=== PATIENT | male | born 1940 | race Caucasian/White ===

== ENCOUNTER 2017-07-15 20:49 | Inpatient (IN) | payer OTHER ==
--- NOTE | 2017-07-15 21:24 | EDPHY ---
H & P Smoking Status: Never smoked Time Seen by Provider: 07/15/17 21:10 HPI/ROS: CHIEF COMPLAINT: Aphasia HISTORY OF PRESENT ILLNESS: The patient is a 77-year-old male who presents emergency department with difficulty with word finding. Patient's family is present. They state he seems more confused. His symptoms arteries on Saturday, the 12 of July. They seem to be gradually worsening. The patient states he feels as though he knows what he wants disabled cannot find the words. He uses inappropriate words. He denies any focal weakness or numbness. No visual change. No headache or neck pain. No recent trauma or fall. Patient's states this seemed to be more off balance a week ago Saturday when they were at yoga. REVIEW OF SYSTEMS: My complete review of systems is negative except as mentioned in the HPI. ( Henny Shaffer) Past Medical/Surgical History: The triage note states the patient has a history of hypertension. However, the family denies any history of hypertension. PSH: vasectomy Social: Pt denies smoking, drugs and alcohol. (Henny Shaffer) Physical Exam: GENERAL: Well-appearing, in no acute distress, alert. HEENT: Eyes normal to inspection, normal pharynx, no signs of dehydration. NECK: No thyromegaly, no lymphadenopathy, supple. RESPIRATORY: Clear to auscultation bilaterally, no rales, rhonchi or wheezing. CVS: Regular rate and rhythm, no rubs, murmurs, or gallops. ABDOMEN: Soft, nontender, nondistended, no organomegaly. BACK: Normal to inspection, no CVA tenderness. SKIN: Normal color, no rash, warm, dry. No pallor. EXTREMITIES: No pedal edema, no calf tenderness, no Homans sign or cords, no joint swelling. NEURO/PSYCH: Higher functions: Alert and Oriented x3. Normal cognition. The word-finding difficulty. No slurred speech. Normal mood and affect. Cranial nerves: Normal as tested. Cerebellar: The patient has a slight tremor with pointing. Good finger to nose , good horv-[id number], normal gait. Peripheral exam: Normal motor exam. Normal sensation. Normal reflexes. ( Henny Shaffer) Constitutional: Initial Vital Signs Temperature (C) 36.9 C 07/15/17 20:52 Heart Rate 58 L 07/15/17 20:52 Respiratory Rate 18 07/15/17 20:52 Blood Pressure 116/71 07/15/17 20:52 O2 Sat (%) 96 07/15/17 20:52 O2 Delivery Mode Room Air Allergies/Adverse Reactions: No Known Allergies Allergy (Unverified 07/15/17 20:55) Home Medications: Medication Instructions Recorded Tamsulosin HCl [Flomax 0.4 MG (*)] 0.4 mg PO DAILY18 07/15/17 Atorvastatin Calcium [Lipitor 40 40 mg PO DAILY18 07/16/17 mg (*)] Glucosamine/Chondroitin 1 each PO DAILY 07/16/17 [Glucosamine/Chondroitin (*)] Ibuprofen [Motrin (*)] 200 mg PO DAILY 07/16/17 Multivitamins [Multivitamin (*)] 1 each PO DAILY 07/16/17 Naproxen Sodium [Aleve 220 MG (*)] 220 mg PO BID PRN 07/16/17 Medical Decision Making ED Course/Re-evaluation: In the emergency department I discussed possible etiologies with the patient's family. I answered all her questions. IV was placed. Laboratory studies, EKG and MRI brain were ordered. I do not feel the patient needs CT imaging at this time based on his presentation. I discussed this with the radiologist. The patient's symptoms started on 07/12/2017. He is out of the window for tPA. He was not made a stroke activation. Sinus rhythm at 55. Normal axis. First-degree AV block. CBC is unremarkable. Chemistry panel normal. Patient's alcohol is negative. Coags normal. I rechecked the patient while here. He was stable with no new complaints. He did not developed new focal neurologic deficits. 0: The signed out to Dr. Roberts at change of shift. The patient is awaiting MRI imaging. My plan, as discussed with Dr. Roberts, is to obtain the MRI results. For positive finding he will address the results. If the MRI is negative I feel the patient needs admission for further workup for his aphasia. (Henny Shaffer) 2350: Spoke with the hospitalist service Dr. Jacobsen. Agrees to admit this patient. Reason for admission brain tumor. Confusion. Additionally I will touch base with Neurosurgery. 2352: Spoke with Dr. Rajpal, with Neurosurgery. They will plan on consulting the patient. Recommend IV Decadron 10 mg. No further rect at this time. Will see and evaluate the patient. (Ta Roberts) Differential Diagnosis: My differential includes but is not limited to ischemic CVA, hemorrhagic CVA, dissection, aneurysm, electrolyte abnormality, sugar abnormality, mass, malignancy, subarachnoid hemorrhage, subdural hematoma, epidural hematoma ( Henny Shaffer) - Data Points Laboratory Results: Laboratory Results 07/15/17 21:30 07/15/17 21:30 Medications Given: Dexamethasone (Decadron) 4 mg PO Q6HRS AIDA Stop: 01/12/18 05:59 Last Admin: 07/16/17 18:00 Dose: 4 mg Tamsulosin HCl (Flomax) 0.4 mg PO DAILY18 AIDA Stop: 01/12/18 17:59 Last Admin: 07/16/17 18:00 Dose: 0.4 mg Discontinued Medications Dexamethasone (Decadron Injection) 10 mg IVP EDNOW ONE Stop: 07/15/17 23:53 Last Admin: 07/16/17 00:30 Dose: 10 mg Departure - Departure Disposition: [facility] Inpatient Acute Clinical Impression: Aphasia, Brain tumor Condition: Good
--- NOTE | 2017-07-15 21:30 | CPEKG ---
Heart Rate: 55 RR Interval: 1091 P-R Interval: 228 QRSD Interval: 100 QT Interval: 408 QTC Interval: 391 P Ross: 49 QRS Ross: 23 T Wave Ross: 37 EKG Severity - ABNORMAL ECG - EKG Impression: SINUS RHYTHM EKG Impression: FIRST DEGREE AV BLOCK EKG Impression: LOW VOLTAGE IN FRONTAL LEADS Electronically Signed By: Henny Shaffer 15-Jul-2017 22:50:05
[2017-07-15 21:38] LABS: PLATELET COUNT 241 10^3/uL (150-400)
[2017-07-15 21:53] LABS: INR 0.95 (0.83-1.16); PROTIME(PATIENT) 12.9 SEC (12.0-15.0)
[2017-07-15] MEDS ORDERED: GADOBUTROL 10 ML VIAL IVP ONE (23:06)
[2017-07-15] MEDS ORDERED: ACETAMINOPHEN 325 MG TAB PO PRN (23:50)
[2017-07-15] MEDS ORDERED: ONDANSETRON 4 MG/2 ML VIAL IVP PRN (23:50)
[2017-07-15] MEDS ORDERED: ONDANSETRON DISINTEGRATING 4 MG TAB PO PRN (23:50)
[2017-07-15] MEDS ORDERED: DEXAMETHASONE 10 MG/ML VIAL IVP ONE (23:52)
--- NOTE | 2017-07-16 00:47 | PDGENHP ---
History and Physical - Chief Complaint Word finding difficulty - History of Present Illness 77 yo M w/o significant PMHx presents with word finding difficulty. Patient is quite healthy for his age. Family reports they have noted some odd behavior over the last few weeks. By that they mean word finding difficulty and less mental acuity than usual. Patient himself denies any organic symptoms. Specifically, he denies headache, visual disturbance, as well as numbness and weakness of any kind. MRI in the ED shows large L basal ganglia lesions of unclear etiology, likely tumor. Patient is being admitted for further work-up and treatment planning. History Information - Allergies/Home Medication List Allergies/Adverse Reactions: No Known Allergies Allergy (Unverified 07/15/17 20:55) Home Medications: Flomax 07/15/17 [Last Taken Unknown] I have personally reviewed and updated: family history, medical history - Past Medical History Additional medical history: BPH - Family History Additional family history: Denies family hx of brain cancer - Social History Smoking Status: Never smoked Review of Systems Review of Systems: ROS: 10pt was reviewed & negative except for what was stated in HPI & below Physical Exam Physical Exam: Temp Pulse Resp BP Pulse Ox 36.9 C 59 L 16 127/81 H 95 07/15/17 20:52 07/16/17 00:30 07/16/17 00:30 07/16/17 00:30 07/16/17 00:30 Constitutional: no apparent distress, not in pain Eyes: PERRL, EOMI Ears, Nose, Mouth, Throat: moist mucous membranes, no oral mucosal ulcers Cardiovascular: regular rate and rhythym, no murmur, rub, or gallop Respiratory: no respiratory distress, clear to auscultation Gastrointestinal: normoactive bowel sounds, soft, non-tender abdomen Skin: warm, normal color Musculoskeletal: full muscle strength, no muscle tenderness Neurologic: AAOx3, sensation intact bilaterally, CN II-XII Intact, No weakness, No numbness, No facial droop Psychiatric: interacting appropriately, not anxious Lab Data & Imaging Review 07/15/17 21:30 07/15/17 21:30 WBC 5.60 10^3/uL (3.80-9.50) 07/15/17 21:30 RBC 4.08 10^6/uL (4.40-6.38) L 07/15/17 21:30 Hgb 13.1 g/dL (13.7-17.5) L 07/15/17 21: Hct 38.2 % (40.0-51.0) L 07/15/17 21: MCV 93.6 fL (81.5-99.8) 07/15/17 21:30 MCH 32.1 pg (27.9-34.1) 07/15/17 21: MCHC 34.3 g/dL (32.4-36.7) 07/15/17 21: RDW 13.6 % (11.5-15.2) 07/15/17: Plt Count 241 10^3/uL (150-400) 07/15/17: MPV 9.4 fL (8.7-11.7) 07/15/17 21: Neut % (Auto) 56.4 % (39.3-74.2) 07/15/17: Lymph % (Auto) 26.4 % (15.0-45.0) 07/15/17: Letcher % (Auto) 11.3 % (4.5-13.0) 07/15/17 21: Eos % (Auto) 3.9 % (0.6-7.6) 07/15/17: Baso % (Auto) 1.8 % (0.3-1.7) H 07/15/17: Nucleat RBC Rel Count 0.0 % (0.0-0.2) 07/15/17: Absolute Neuts (auto) 3.16 10^3/uL (1.70-6.50) 07/15/17 21: Absolute Lymphs (auto) 1.48 10^3/uL (1.00-3.00) 07/15/17: Absolute Monos (auto) 0.63 10^3/uL (0.30-0.80) 07/15/17 21: Absolute Eos (auto) 0.22 10^3/uL (0.03-0.40) 07/15/17 21: Absolute Basos (auto) 0.10 10^3/uL (0.02-0.10) 12/25/17 21:30 Absolute Nucleated RBC 0.00 10^3/uL (0-0.01) 07/15/17 21:30 Immature Gran % 0.2 % (0.0-1.1) 07/15/17 21:30 Immature Gran # 0.01 10^3/uL (0.00-0.10) 07/15/17 21:30 PT 12.9 SEC (12.0-15.0) 07/15/17 21:30 INR 0.95 (0.83-1.16) 07/15/17 21:30 APTT 24.6 SEC (23.0-38.0) 07/15/17 21:30 Sodium 141 mEq/L (134-144) 07/15/17 21:30 Potassium 4.2 mEq/L (3.5-5.2) 07/15/17 21:30 Chloride 104 mEq/L (97-110) 07/15/17 21:30 Carbon Dioxide 27 mEq/l (22-31) 07/15/17 21:30 Anion Gap 10 mEq/L (8-16) 07/15/17 21:30 BUN 26 mg/dL (7-23) H 07/15/17 21:30 Creatinine 1.1 mg/dL (0.7-1.3) 07/15/17 21:30 Estimated GFR > 60 07/15/17 21:30 Glucose 91 mg/dL (70-100) 07/15/17 21:30 Calcium 9.6 mg/dL (8.5-10.4) 07/15/17 21:30 Troponin I < 0.012 ng/mL (0.000-0.034) 07/15/17 21:30 Ethyl Alcohol < 10 mg/dL (0-10) 07/15/17 21:30 Imaging Review: Imaging Impressions Brain MRI 07/15/17 21:20 Impression: 1. Large lesion left basal ganglia with heterogeneous hemorrhagic central components and peripheral heterogeneous enhancement as well as a small amount of surrounding edema. The etiology is indeterminate. This could represent hemorrhagic tumor such as GBM or hemorrhagic metastatic lesion versus possibility of spontaneous intraparenchymal hemorrhage possibly from hypertension, amyloid angiopathy or vascular malformation that can sometimes also demonstrate peripheral marginal enhancement. Consider neurosurgical consultation for possible sampling and decompression since the patient is apparently symptomatic versus follow-up evaluation in about one month. If symptoms worsen, additional imaging may be necessary. These findings were discussed by telephone with Dr. Ta Roberts at 2355 hrs. Visualized and Interpreted EKG results: Yes EKG Interpretation: Positive for: normal sinsus rhythm, other (1st degree AV block) Assessment & Plan Assessment: 77 yo M presenting w/ word finding difficulty found to have brain mass. Plan: 1. Intracranial lesion - Describes as having heterogeneous hemorrhagic central components and peripheral heterogeneous enhancement as well as a small amount of surrounding edema. Per radiology this could represent hemorrhagic tumor such as GBM or hemorrhagic metastatic lesion versus possibility of spontaneous intraparenchymal hemorrhage possibly from hypertension, amyloid angiopathy or vascular malformation that can sometimes also demonstrate peripheral marginal enhancement. Patient has noted work finding difficulties but has no clear neurologic deficits on my exam. - Neurosurgery consulted, appreciate assistance - S/p dexamethasone 10 mg IV x1 in the ED, will continue 4 mg PO q6h - Will maintain NPO pending neurosurgery evaluation - Oncology consultation once tissue is obtained Diet - NPO Code - Full Ppx - SCDs Dispo - Admit to observation status
[2017-07-16 04:46] LABS: PLATELET COUNT 286 10^3/uL (150-400)
[2017-07-16] MEDS: DEXAMETHASONE 4 MG TAB PO SCH ×3 (06:25→18:00)
--- NOTE | 2017-07-16 08:31 | NEUSURGPN ---
Assessment/Plan: Please see full dictated consult for details 77 yr old with confusion, 4cm left basal ganglia brain tumor Plan: -Patient may have diet today -Plan for brain biopsy tomorrow with Dr Mabry -[facility] MRI ordered for surgical planning -Continue Decadron -PT/OT/ST to eval and treat -Patient seen by myself and Dr Coreas today at 0700 -Please call neurosurgery with any questions/concerns Subjective: patient denies headache Objective: AxO x3 PERRLA EOMI 5/5 BUE, BLE Neuro Check Frequency: per routine Urinary Catheter in Place: No - Physician Discussed Patient with Dr.: Mabry Patient Seen by : [facility] Neurosurgery Physical Exam - Vitals, I&O, Labs I and O 07/15/17 07/16/17 07/17/17 05:59 05:59 05:59 Weight 70.307 kg Other: Intake Quantity Yes Sufficient Vital Signs Temp Pulse Resp BP Pulse Ox 36.4 C 73 12 113/72 93 07/16/17 08:14 07/16/17 08:14 07/16/17 08:14 07/16/17 08:14 07/16/17 08:14 Laboratory Results 07/16/17 04:20 07/16/17 04:20 ICD10 Worksheet Patient Problems: Problems Problem Status Onset Aphasia Acute Brain tumor Acute
--- NOTE | 2017-07-16 09:28 | GCON ---
[f rep st] CONSULTATION CHIEF COMPLAINT: Confusion, brain tumor HISTORY OF PRESENT ILLNESS: The patient is a 77-year-old gentleman with no significant past medical history. Over the last 3 weeks, he and his have noticed some difficulty with words as well as some confusion at times. The patient's feels that he has had some mild balance issues as well. The patient and his were out of state for the holidays and flew home yesterday and came to the emergency room at [facility] for evaluation on their way home from the airport. REVIEW OF SYSTEMS: A 10-point review of systems was performed and negative aside from what was mentioned in the HPI. PAST MEDICAL HISTORY: 1. Benign prostatic hypertrophy. 2. Hepatitis A from the 1970s. PAST SURGICAL HISTORY: Vasectomy with infection complications. CURRENT MEDICATIONS: Flomax and a statin. FAMILY HISTORY: Patient denies any cancers in his mom or dad. Patient's father had atrial fibrillation and mother had a form of dementia. SOCIAL HISTORY: The patient is . He drinks alcohol on a very rare occasion, approximately once per month. He does not use any nicotine products and does not use any drugs. ALLERGIES: Patient has no known drug allergies. DIAGNOSTICS: MRI of the brain performed with and without contrast on 07/15/2017 , demonstrated a large lesion in the left basal ganglia with hemorrhagic components and a small amount of surrounding edema. This could represent a hemorrhagic tumor such as a glioblastoma or hemorrhagic metastatic lesion versus the possibility of a spontaneous intraparenchymal hemorrhage from hypertension or a vascular malformation. LABORATORY STUDIES: White blood cell count 7.06, hemoglobin 14.6, hematocrit 41.6, platelets are 286. PT 12.9, INR 0.95, PTT is 24.6, sodium is 141, potassium 4.2, BUN 20, creatinine 0.9. PHYSICAL EXAMINATION: VITAL SIGNS: Blood pressure is 113/72, heart rate is 73 , respiratory rate is 12, oxygen saturations 93% on room air, temperature is 36.4 degrees Celsius. HEENT: Head is normocephalic and atraumatic. Pupils are equal, round, and reactive to light. EOMI is intact. Full visual mathur by confrontation. RESPIRATORY: Deferred. CARDIAC: Deferred. ABDOMEN: Soft, nontender. GENITOURINARY: Deferred. RECTAL: Deferred. NEUROLOGIC: The patient is awake and alert and oriented to name, place, location, time, and situation. He does mix his words occasionally referring to his daughter and his sister during interview. Memory is intact to immediate, past and current events. Speech, no aphasia or dysphonia. Cranial nerves 2 through 12 are grossly intact. Motor, the patient has 5/5 strength in all muscle groups in bilateral upper and lower extremities to include deltoids, biceps, triceps, brachioradialis, wrist flexion, extensors, book editor, intrinsic fingers, iliopsoas, quadriceps, hamstrings, plantar flexion, dorsiflexion, and EHL testing. Sensation is grossly intact to light touch throughout all dermatomal distributions in bilateral lower extremities. Reflexes, biceps, triceps, brachioradialis, knee jerk and ankle jerk are 2+ out of 4. Toes are downgoing bilaterally. Devorah sign is negative. Babinski is negative and there is no evidence of clonus. ASSESSMENT/PLAN: The patient is a 77-year-old gentleman who came in the emergency room yesterday with 3 weeks of confusion and difficulty with finding words. MRI of the brain was performed which demonstrates a large left basal ganglia tumor with surrounding edema. The patient was placed on oral Decadron 4 mg every 6 hours to help with the swelling, and we will continue this medication. Dr. Coreas spoke with the patient and the at the bedside ,and discussed the location of the mass. Biopsy of the mass is recommended and pathology will help guide further treatment plan. Dr. Mabry will take the patient to the operating room tomorrow on 07/17, for a brain biopsy. We will have the patient undergo an MRI of the brain with [facility] protocol today for surgical planning tomorrow. The patient may advance his diet today but will be n.p.o. Tonight at midnight. The patient was seen and examined with Dr. Coreas at the bedside on the medical surgical floor at 0700 today. The patient was also discussed with Dr. Mabry who will see the patient tomorrow. /[id number]/MODL MTDD
[2017-07-16] MEDS ORDERED: GADOBUTROL 10 ML VIAL IVP ONE (10:55)
--- NOTE | 2017-07-16 12:19 | HOSPPROG ---
Hospitalist Progress Note Assessment/Plan: 77 yo M presenting w/ word finding difficulty found to have brain mass. Plan: 1. Intracranial lesion - - Neurosurgery consulted, appreciate assistance - S/p dexamethasone 10 mg IV x1 in the ED, will continue 4 mg PO q6h - Regular diet - Oncology consultation once tissue is obtained -brain bx in am -MRI today Diet - regualr Code - Full Ppx - SCDs Dispo - Admit to observation status Subjective: Feeling fine. Objective: Vital Signs Temp Pulse Resp BP Pulse Ox 36.4 C 73 12 113/72 93 07/16/17 08:14 07/16/17 08:14 07/16/17 08:14 07/16/17 08:14 07/16/17 08:14 Laboratory Results 07/16/17 04:20 07/16/17 04:20 PT 12.9 SEC (12.0-15.0) 07/15/17 21:30 INR 0.95 (0.83-1.16) 07/15/17 21:30 - Physical Exam Constitutional: no apparent distress, appears nourished, not in pain Eyes: PERRL, anicteric sclera, EOMI Ears, Nose, Mouth, Throat: moist mucous membranes, hearing normal, ears appear normal Cardiovascular: regular rate and rhythym, No JVD, No edema Respiratory: no respiratory distress, no rales or rhonchi, reduced air movement Gastrointestinal: normoactive bowel sounds, No tenderness, No ascites Skin: warm, normal color, No mottled Musculoskeletal: no muscle tenderness, normal joint ROM, generalized weakness Psychiatric: not anxious, poor memory ICD10 Worksheet Patient Problems: Problems Problem Status Onset Aphasia Acute Brain tumor Acute
--- NOTE | 2017-07-16 12:21 | PDMN ---
Medical Necessity Medical necessity: Pt meets IP criteria per MD; est los >2 mn for eval/tx of confusion & word finding difficulties r/t large L basal ganglia brain tumor; admit for further workup/treatment planning, Neuro/Oncology consults & therapies ; per H&P & order 07/15/17
--- NOTE | 2017-07-16 15:08 | ASMTCMCOM ---
CM Note CM Note Notes: Pt scheduled for brain biopsy tomorrow. 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 D/c needs TBD. Chart indicates pt has supportive family. CM to follow. Date Signed: 07/16/2017 03:08 PM Electronically Signed By:RENETTA Smith
[2017-07-16] MEDS: TAMSULOSIN HCL 0.4 MG CAP PO SCH (18:00)
[2017-07-17] MEDS: DEXAMETHASONE 4 MG TAB PO SCH ×4 (01:14→16:50)
[2017-07-17] MEDS ORDERED: D5W 1/2 NS 1,000 ML IV SCH (08:30)
--- NOTE | 2017-07-17 08:36 | SOAPPROG ---
SOAP Progress Note Assessment/Plan: Assessment: 77 yo male with large left brain mass with surrounding edema and expressive aphasia. He is on steroids and these have improved his symptoms to some degree. Plan: NPO Pt is going to OR today for brain biopsy with Dr. Mabry. 07/17/17 08:33 07/17/17 08:39 Subjective: awake, alert, comfortable. No new issues overnight. Has some speech difficulty but understands clearly. is present. Objective: Vital Signs Temp Pulse Resp BP Pulse Ox 37.0 C 74 16 113/69 95 07/17/17 07:42 07/17/17 07:42 07/17/17 07:42 07/17/17 07:42 07/17/17 07:42 Laboratory Results 07/16/17 04:20 07/16/17 04:20 07/16/17 07/17/17 07/18/17 05:59 05:59 05:59 Intake Total 400 Balance 400 PT 12.9 SEC (12.0-15.0) 07/15/17 21:30 INR 0.95 (0.83-1.16) 07/15/17 21:30 Neuro: GOMEZ, sens +LT mild expressive aphasia oriented x 4 ICD10 Worksheet Patient Problems: Problems Problem Status Onset Aphasia Acute Brain tumor Acute
[2017-07-17] MEDS ORDERED: ceFAZolin 2 GM/DEXTROSE 100 ML IV ONE (08:40)
--- NOTE | 2017-07-17 13:31 | HOSPPROG ---
Hospitalist Progress Note Assessment/Plan: 77 yo M presenting w/ word finding difficulty found to have brain mass. Plan: 1. Intracranial lesion - - Neurosurgery consulted, appreciate assistance - S/p dexamethasone 10 mg IV x1 in the ED, will continue 4 mg PO q6h - Regular diet - Oncology consultation once tissue is obtained -brain bx today 2. hiccupps 3. AMS/aphasia conts, mild Diet - regualr Code - Full Ppx - SCDs Dispo - change to inpt needs surgical bx Subjective: Feeling ok. Confusion. Objective: Vital Signs Temp Pulse Resp BP Pulse Ox 37.0 C 67 16 111/68 97 07/17/17 13:05 07/17/17 13:05 07/17/17 13:05 07/17/17 13:05 07/17/17 13:05 Laboratory Results 07/16/17 04:20 07/16/17 04:20 07/16/17 07/17/17 07/18/17 05:59 05:59 05:59 Intake Total 400 Balance 400 PT 12.9 SEC (12.0-15.0) 07/15/17 21:30 INR 0.95 (0.83-1.16) 07/15/17 21:30 - Physical Exam Constitutional: no apparent distress, appears nourished Eyes: PERRL, anicteric sclera Ears, Nose, Mouth, Throat: moist mucous membranes, hearing normal, ears appear normal Cardiovascular: No JVD, No edema Respiratory: no respiratory distress, reduced air movement Gastrointestinal: No tenderness, No ascites Skin: warm, normal color, No mottled Musculoskeletal: normal joint ROM, no joint effusions, generalized weakness Psychiatric: interacting appropriately, poor insight, poor judgement, poor memory ICD10 Worksheet Patient Problems: Problems Problem Status Onset Aphasia Acute Brain tumor Acute
--- NOTE | 2017-07-17 14:28 | PDANEPAE ---
ANE History of Present Illness 77 year old male deep presented with symptoms of aphasia with MRI findings of a left brain mass. Patient to OR for craniotomy & mass biopsy. ANE Past Medical History - Cardiovascular History Hx Hypertension: No Hx Arrhythmias: No Hx Chest Pain: No Hx Coronary Artery / Peripheral Vascular Disease: No Hx CHF / Valvular Disease: No Hx Palpitations: No - Pulmonary History Hx COPD: No Hx Asthma/Reactive Airway Disease: No Hx Recent Upper Respiratory Infection: No Hx Oxygen in Use at Home: No Hx Sleep Apnea: No Sleep Apnea Screening Result - Last Documented: Positive - Endocrine History Hx Diabetes: No Hypothyroid: No Hyperthyroid: No Obesity: no - Renal History Hx Renal Disorders: No - Liver History Hx Hepatic Disorders: No - Neurological & Psychiatric Hx Neurological / Psychiatric History Comment: Patients with aphasia and newly discovered left brain mass. - Cancer History Hx Cancer: Yes Cancer History Comment: Prostate cancer - - GI History Hx Gastrointestinal Disorders: No - Chronic Pain History Chronic Pain: No ANE Review of Systems Review of systems is: negative Review of Systems: - Exercise capacity Exercise capacity: >=4 METS - Systems Neurological: Reports: other (expressive aphasia) ANE Patient History - Allergies Allergies/Adverse Reactions: No Known Allergies Allergy (Unverified 07/15/17 20:55) - Home Medications Home medications: home medication list seen and reviewed Home Medications: Tamsulosin HCl [Flomax 0.4 MG (*)] 0.4 mg PO DAILY18 07/15/17 [Last Taken ] Atorvastatin Calcium [Lipitor 40 mg (*)] 40 mg PO DAILY18 07/16/17 [Last Taken 07/14/17] Glucosamine/Chondroitin [Glucosamine/Chondroitin (*)] 1 each PO DAILY 07/16/17 [ Last Taken 07/14/17] Ibuprofen [Motrin (*)] 200 mg PO DAILY 07/16/17 [Last Taken 07/14/17] Multivitamins [Multivitamin (*)] 1 each PO DAILY 07/16/17 [Last Taken 07/14/17] Naproxen Sodium [Aleve 220 MG (*)] 220 mg PO BID PRN 07/16/17 [Last Taken ] - NPO status NPO Status: no food or drink >8 hours NPO Since - Liquids (Date): 07/17/17 NPO Since - Liquids (Time): 03:00 NPO Since - Solids (Date): 07/17/17 NPO Since - Solids (Time): 13:07 - Anes Hx Anes Hx: no prior problems - Smoking Hx Smoking Status: Never smoked Marijuana use: No - Alcohol Use Alcohol Use: Rarely - Family Anes Hx Family Anes Hx: neg - N/A ANE Labs/Vital Signs - Labs Result Diagrams: 07/16/17 04:20 07/16/17 04:20 - Vital Signs Vital Signs: reviewed preoperatively; see RN documention for details Blood Pressure: 111/68 Heart Rate: 67 Respiratory Rate: 16 O2 Sat (%): 97 Height: 172.72 cm Weight: 70.307 kg ANE Physical Exam - Airway Neck exam: FROM Mallampati Score: Class 2 Mouth exam: normal dental/mouth exam - Pulmonary Pulmonary: no respiratory distress - Cardiovascular Cardiovascular: bradycardia - ASA Status ASA Status: IV ANE Anesthesia Plan Anesthesia Plan: general endotracheal anesthesia Lines/Monitors: arterial line Total IV Anesthesia: Yes
[2017-07-17] MEDS ORDERED: PROPOFOL 200 MG/20 ML VIAL ONE (14:53)
[2017-07-17] MEDS ORDERED: fentaNYL 100 MCG/2 ML INJ ONE (14:53)
[2017-07-17] MEDS ORDERED: ROCURONIUM 50 MG/5 ML VIAL ONE ×2 (14:57→17:22)
[2017-07-17] MEDS ORDERED: LIDOCAINE 2% 5 ML SDV ONE (14:57)
[2017-07-17] MEDS ORDERED: PROPOFOL/EMULSION 500 MG/50 ML BOTTLE IV ONE (14:59)
[2017-07-17] MEDS ORDERED: REMIFENTANIL HCL 1 MG VIAL ONE (14:59)
[2017-07-17] MEDS ORDERED: MANNITOL 20% 100 GM/500 ML BAG IV ONE (15:02)
[2017-07-17] MEDS ORDERED: LR 1,000 ML IV ONE (15:08)
[2017-07-17] MEDS ORDERED: ceFAZolin 2 GM/SWFI 20 ML SYR IVP ONE (15:14)
[2017-07-17] MEDS ORDERED: CHLORHEXIDINE GLUC HIBICLENS 118 ML BTL TP ONE (15:24)
[2017-07-17] MEDS ORDERED: LIDO/EPI 1% **for epidural** 30 ML SDV ONE (15:24)
[2017-07-17] MEDS ORDERED: THROMBIN (BOVINE) 5,000 UNIT VIAL TP ONE (15:24)
[2017-07-17] MEDS ORDERED: BACITRACIN ZINC 14.2 GM OINTTUBE TP ONE (15:24)
[2017-07-17] MEDS ORDERED: BACITRACIN 50,000 UNITS/10 ML SYR IRR ONE (15:25)
[2017-07-17] MEDS ORDERED: PHENYLEPHRINE HCL 100 MCG/ML SYR ONE (15:35)
--- NOTE | 2017-07-17 16:22 | ASMTCMCOM ---
CM Note CM Note Notes: Pt had brain biopsy today and transferred to ICU. Received VM from chaplain Pérez stating pt son may need assistance w [place] paperwork. This CM did not have an opportunity to follow up w son today, CM to follow. Date Signed: 07/17/2017 04:22 PM Electronically Signed By:RENETTA Smith
[2017-07-17] MEDS ORDERED: levETIRAcetam 1,000 MG in NS 100 ML IV ONE (16:45)
[2017-07-17] MEDS ORDERED: DEXAMETHASONE 4 MG/ML VIAL ONE (16:53)
[2017-07-17] MEDS ORDERED: ONDANSETRON 4 MG/2 ML VIAL ONE (16:53)
[2017-07-17] MEDS ORDERED: ONDANSETRON 4 MG/2 ML VIAL IVP PRN (17:07)
[2017-07-17] MEDS ORDERED: PHENYLEPHRINE HCL 100 MCG/ML SYR IVP PRN (17:07)
[2017-07-17] MEDS ORDERED: HYDROmorphONE/DILAUDID 1 MG/ML INJ IVP PRN (17:07)
[2017-07-17] MEDS ORDERED: fentaNYL 100 MCG/2 ML INJ IVP PRN (17:07)
[2017-07-17] MEDS ORDERED: NALOXONE HCL 0.4 MG/ML INJ IVP PRN (17:07)
[2017-07-17] MEDS ORDERED: LR 500 ML IV PRN (17:07)
--- NOTE | 2017-07-17 18:13 | POSTOPPROG ---
Post Op Note Date of Operation: 07/17/17 Surgeon: Bryan Mabry Adolescent Medicine Specialist: Annalisa So PA-C Anesthesia: GET(General Endotracheal) Pre-op Diagnosis: left sided basal ganglia mass Post-op Diagnosis: same Procedure: left craniotomy for needle biopsy of left basal ganglia mass Inf/Abcess present in the surg proc area at time of surgery?: No Depth: Organ Space EBL: Minimal Complications: None SOAP Progress Note Assessment/Plan: Assessment: Plan: S: Patient in PACU. 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
[2017-07-17] MEDS ORDERED: NS W/ 20 KCl/L 1,000 ML IV SCH (18:15)
[2017-07-17] MEDS ORDERED: POLYETHYLENE GLYCOL 3350 17 GM PKT PO PRN (18:15)
[2017-07-17] MEDS ORDERED: LACTULOSE 20 GM/30 ML UDCUP PO PRN (18:15)
[2017-07-17] MEDS ORDERED: MAGNESIUM HYDROXIDE 30 ML UDCUP PO PRN (18:15)
[2017-07-17] MEDS ORDERED: HYDROCODONE/APAP 10/325 TAB PO PRN (18:15)
[2017-07-17] MEDS ORDERED: BISACODYL 10 MG SUPP PR PRN (18:15)
[2017-07-17] MEDS ORDERED: hydrALAZINE 20 MG/ML VIAL IVP PRN (18:29)
[2017-07-17] MEDS: TAMSULOSIN HCL 0.4 MG CAP PO SCH (20:02)
[2017-07-17] MEDS: levETIRAcetam 500 MG TAB PO SCH (20:02)
[2017-07-17] MEDS: SENNOSIDES/DOCUSATE SODIUM TAB PO SCH (20:02)
[2017-07-18 00:25] VITALS: TEMP 97.5
[2017-07-18] MEDS: DEXAMETHASONE 4 MG TAB PO SCH ×3 (00:26→12:23)
--- NOTE | 2017-07-18 04:46 | GOP ---
[f rep st] OPERATIVE REPORT DATE OF OPERATION: 07/17/2017 SURGEON: Bryan Mabry MD NEUROSURGEON: Bryan Mabry MD. SUSTAINABLE PRODUCTS MARKETING MANAGER: Annalisa So PA-C. ANESTHESIA: General endotracheal. PREOPERATIVE DIAGNOSIS: Large left basal ganglia mass. POSTOPERATIVE DIAGNOSIS: Large left basal ganglia mass. PROCEDURE PERFORMED: 1. Left frontal stereotactic brain biopsy. 2. Use of Stealth stereotactic navigation for brain biopsy. FINDINGS: SPECIMENS: Left frontal brain tumor for frozen and permanent section. ESTIMATED BLOOD LOSS: 5 cc. INDICATIONS: The patient is a 77-year-old man who presented with some aphasia and confusion. CT and subsequent MRI showed a large nearly 4 cm basal ganglia mass consistent with glioblastoma. He did i mprove somewhat in his mentation on steroids, but he presents now today for stereotactic brain biopsy to establish the diagnosis and further guide treatment. DESCRIPTION OF PROCEDURE: After informed consent was obtained from the patient, the patient was brou ght to the operating room, was placed in supine position on the operating table. A formal time-out w as performed, identifying the patient by name, medical record number, and date of . Preoperativ e antibiotics were given. Endotracheal tube was placed and general endotracheal anesthesia was jackson hly induced. The patient's head was then placed in Abrams pins and the Stealth unit was registered to the scalp and checked for accuracy using known surface landmarks. This was used to locate the en try point of the pre-planned trajectories from the left frontal region to the tumor. The skin incisi on was planned. The head was prepped and draped in normal sterile fashion. 10 cc of 0.25% Marcaine with epinephrine was infiltrated into the skin for hemostasis. The skin incision was then made using a 10 blade and the subcutaneous tissues were dissected using monopolar electrocautery. A self-retai brenda retractor was placed at the pre-planned entry point. A single bur hole was created using the pe rforator and the dura was opened in a cruciate fashion. The peel surface was coagulated also. The Perkle Navigus system was then brought into the field. Then the Navigus cap was screwed to the skull using the supplied screws. The remainder of the system was used to line up the trajectory and plan the biopsy site. The Navigus needle was then set to the appropriate length and was then passed to it s depth under direct stereotactic vision. Four biopsies were taken from 12 o'clock, 3 o'clock, 6 o'c lock and 9 o'clock. These were sent for frozen section. Ultimately, these returned with lesional ti ssue, likely high-grade glioma. A 2nd pre-planned trajectory was then more anterior portion of the t umor was also used and some biopsies were taken from this and sent for a permanent section. A 3rd bi opsy tract neared the 1st planned trajectory was also chosen and a few more pieces of tissue were kp en for genetic testing. No obvious bleeding or signs of complication were seen. These specimens wer e sent as a permanent section left frontal brain mass. The needle was then removed. There was no fu rther bleeding that was visualized. A piece of Gelfoam was placed over the dural opening and a [employer] bur hole cover was placed over the bur hole. The wound was copiously irrigated using bacit racin irrigation. The galea was closed using interrupted 2-0 Vicryl and the skin was closed using a running 4-0 Monocryl. Patient was awakened in the operating room, was transferred to the PACU in sta ble condition. There were no operative complications. I was scrubbed and present for the entire pro cedure. FLUIDS AND URINE OUTPUT: Per the anesthesia record. DRAINS: There were no drains. /[id number]/MODL
[2017-07-18 04:52] VITALS: RESP 10
[2017-07-18 06:17] VITALS: BP 92/48
--- NOTE | 2017-07-18 07:26 | NEUSURGPN ---
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 and son at bedside. Objective: AAOx3 NAD VSS MAEx4 Motor 5/5 BUE/BLE Incision cdi +LT Urinary Catheter in Place: No - Physician Discussed Patient with Dr.: Mabry Neurosurgery Physical Exam - Vitals, I&O, Labs I and O 07/17/17 07/18/17 07/19/17 05:59 05:59 05:59 Intake Total 400 700 Output Total 700 Balance 400 0 Weight 70.307 kg Intake: Oral (ml) 400 600 IV Intake (ml) 100 Output: Urine (ml) 700 Toilet 700 Other: Number of Voids Toilet 1 1 Bladder Scan Volume (ml) 458 Toilet 887 Post Void Residual Scan Volume (ml) Toilet 184 Vital Signs Temp Pulse Resp BP Pulse Ox 36.4 C 54 L 10 L 92/48 L 97 07/18/17 04:50 07/18/17 06:00 07/18/17 06:00 07/18/17 06:00 07/18/17 06:00 Laboratory Results 07/16/17 04:20 07/16/17 04:20 ICD10 Worksheet Patient Problems: Problems Problem Status Onset Aphasia Acute Brain tumor Acute
[2017-07-18] MEDS: SENNOSIDES/DOCUSATE SODIUM TAB PO SCH (08:06)
[2017-07-18] MEDS: levETIRAcetam 500 MG TAB PO SCH (08:09)
--- NOTE | 2017-07-18 10:32 | GCON ---
[f rep st] CONSULTATION ONCOLOGY CONSULTATION DATE OF CONSULTATION: 07/18/2017 REASON FOR CONSULTATION: Brain tumor. HISTORY OF PRESENT ILLNESS: The patient is a pleasant 77-year-old gentleman who presented to [facility] on 07/15 with neurologic symptoms. Over an approximate 3 week period of time the patient had word-finding difficulties and mild confusion. His balance was mildly impaired. There w as no obvious extremity weakness or numbness. The patient denies headaches or nausea. He denies vis ual changes at that time. He and his were in [place] for the holiday, but chose to come home early. His wi fe brought him from the airport to [facility]. An MRI was performed which demonstrat ed a large lesion in the left basal ganglia with associated hemorrhage and surrounding edema. The patient was evaluated by Dr. Coreas of Neurosurgery. Due to the location of the tumor, it was no t felt to be resectable. An open biopsy was recommended, which was done yesterday. Preliminary path ology from frozen section is suggestive of a glioblastoma multiforme. Final pathology has not yet be en reported. The patient has been placed on dexamethasone. His symptoms are somewhat better. He will likely be d ischarged later today. The patient is accompanied today by his Adrianne, as well as by his son. PAST MEDICAL HISTORY: 1. 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 2. Remote history of hepatitis A. PAST SURGICAL HISTORY: Vasectomy. OUTPATIENT MEDICATIONS: Include Flomax and a statin. FAMILY MEDICAL HISTORY: Patient denies any known family history of malignancy. SOCIAL HISTORY: The patient lives in [place]. He is to Adrianne. 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 He is a nonsmoker. He drinks alcohol rarely. He has a daughter and son who live [facility]. REVIEW OF SYSTEMS: As outlined above. Patient additionally denies fevers, chills, chest pain, cough , abdominal pain, bloating, nausea, vomiting, diarrhea. PHYSICAL EXAMINATION: Patient is sitting in a chair. He is in no acute distress. He is alert and o riented x3. Pupils are equal. His speech is fluent. He does not appear to have any significant wor d-finding difficulties when seen today. He answers questions appropriately. He can move all 4 extre mities without difficulty. His gait is grossly normal. No associated extremity swelling or edema. No skin rash. MRI results as outlined above. LABORATORY STUDIES: White count 7.0, hemoglobin 14.6, platelet count 286,000. Sodium 141, potassium 4.2, chloride 104, bicarb 29, BUN 20, creatinine 0.9. IMPRESSION: 1. 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 2. Remote history of localized prostate carcinoma treated with proton therapy, 2008. The patient is a pleasant 77-year-old gentleman who presents to the hospital with approximately 3 wee ks of neurologic changes. He was unfortunately found to have a fairly large enhancing mass in the le ft lentiform nucleus with associated mass effect. I discussed this case with Neurosurgery today. He is not felt to have a resectable tumor based on it s location. Resection would unfortunately result in fairly profound neurologic deficits. A biopsy has been performed by Neurosurgery. Preliminary pathology suggests a glioblastoma multiform e. I discussed the presumptive diagnosis with the patient, his and son at length today. I cautione d them that this is a preliminary diagnosis. However, the overall clinical picture strongly supports the diagnosis of glioblastoma multiforme. We discussed the general treatment of this disease. We discussed the somewhat worse outcome in patie nts who present with unresectable disease. We discussed that this disease is not felt to be curable. I would recommend initial treatment with radiation and radiosensitizing temozolomide. This will be f ollowed by 6 months of high-dose temozolomide as well as concurrent use of the recently FDA approved Optune device. We discussed the option of transferring his care to [place]. The patient would like to remain w ith his current team of doctors and asked if he could simply follow up with me in [place], as this i s more convenient for the patient and his . I would be happy to facilitate this. I will have my office reach out to him to get him an appointment early next week. He will be discharged on dexamethasone. He is asked to call either my office or his neurosurgeon's o ffice with any new neurologic symptoms. He will likely be discharged later today. I have discussed the case with the neurosurgical service as well as Dr. Bryan of the hospitalist [facility]. The patient and his family had multiple questions which were answered. Total time for today's visit was approximately 65 minutes of which greater than 50% was spent in coun seling and care coordination. /[id number]/MODL
--- NOTE | 2017-07-18 11:59 | ASMTCMCOM ---
CM Note CM Note Notes: Chart reviewed.. Patient to go home today and follow up with outpatient service. No needs identified. Did speak to son regarding his FMLA paper work that he handed off to a FIELD REP on [address] yesterday. I am not certain this was faxed to Dr. Vega's office and I reccommend he follow up with the MD office.CM available shoould other needs arise Date Signed: 07/18/2017 11:59 AM Electronically Signed By:Alpa Macias RN
--- NOTE | 2017-07-18 13:23 | GDS ---
[f rep st] DISCHARGE SUMMARY CONSULTATIONS: 1. Neurosurgery. 2. Oncology. DIAGNOSES: 1. New brain lesion. Suspected glioblastoma multiform, though pathology is pending. 2. Mild confusion and aphasia, improving. HOSPITAL COURSE: This is a 77-year-old man with little past medical history who presented with aphas ia and mild confusion. Imaging here showed a brain lesion consistent with glioblastoma multiform. T his was felt to not be resectable by Neurosurgery. He underwent a fine-needle biopsy of this mass, w roberth is in his basal ganglia, on 07/17/2017. Final pathology is pending, though initial read is cons istent with glioblastoma multiform. He has been placed on steroids, which have improved his symptoms significantly. He will also be placed on Keppra for seizure prophylaxis. He has not had any seizur es, however. FOLLOWUP: 1. Dr. Lmaa in [place] for ongoing oncology management. 2. Dr. Mabry for any postoperative questions. STUDIES PENDING AT DISCHARGE: Final pathology. BILLING: I spent more than 30 minutes on the day of discharge coordinating care. /[id number]/MODL
[2017-07-18 13:52] VITALS: PULSE 53; O2SAT 96
--- NOTE | 2017-07-18 17:27 | POSTANESTH ---
Post Anesthetic Evaluation Cardiovascular Status: Normal, Stable, Similar to Pre-Op Cond Respiratory Status: Normal, Stable, Similar to Pre-op Cond. Level of Consciousness/Mental Status: Can Participate in Eval, Alert and Oriented Pain Control: Adequate, Prn Tx Ordered Nausea/Vomiting Control: Adequate, Prn Tx Ordered Complications Possibly Related to Anesthesia: None Noted
--- NOTE | 2017-07-19 13:17 | ASDISCHSUM ---
Discharge Information Plan Status:Home with No Needs Medically Cleared to Leave: Discharge Date:07/18/2017 01:16 PM CM D/C Disposition:Home, Routine, Self-Care ADT D/C Disposition:Home, Routine, Self-Care Projected Discharge Date:07/18/2017 01:16 PM Transportation at D/C:Family Discharge Delay Reason: Follow-Up Date:07/18/2017 01:16 PM Discharge Slot: Final Diagnosis: Placement Information Patient Contact Information Contact Name:JOHN Relationship: Address:[address] City:[place] Alternate Phone: [facility]/Zip Code:[place] [address] Email: Financial Information Financial Class: Primary Plan Desc:MEDICARE INPATIENT Primary Plan Number:[id number] Secondary Plan Desc:[employer] PPO POS HMO SIG ADM Secondary Plan Number:[id number] Assessment Information [facility] CM Progress Note CM Note CM Note Notes: Pt scheduled for brain biopsy tomorrow. 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 D/c needs TBD. Chart indicates pt has supportive family. CM to follow. Date Signed: 07/16/2017 03:08 PM Electronically Signed By:RENETTA Smith [facility] CM Progress Note CM Note CM Note Notes: Pt had brain biopsy today and transferred to ICU. Received VM from chaplain Pérez stating pt son may need assistance w JUL[employer] paperwork. This CM did not have an opportunity to follow up w son today, CM to follow. Date Signed: 07/17/2017 04:22 PM Electronically Signed By:RENETTA Smith [facility] CM Progress Note CM Note CM Note Notes: Chart reviewed.. Patient to go home today and follow up with outpatient service. No needs identified. Did speak to son regarding his FMLA paper work that he handed off to a POWER SAW OPERATOR on [address] yesterday. I am not certain this was faxed to Dr. Vega's office and I reccommend he follow up with the MD office.CM available shoould other needs arise Date Signed: 07/18/2017 11:59 AM Electronically Signed By:Alpa Macias RN Intervention Information
== END 2017-07-18 13:16 | disposition home or self-care (01) | DRG 27 ==
LOC: F3N 07-16 00:45 → F2N 07-17 15:17
PROVIDERS: ADMIT Student in an Organized Health Care Education/Training Program; ATTEND Student in an Organized Health Care Education/Training Program
PROC: 8E09XBZ Computer Assisted Procedure of Head and Neck Region (ICD-10-PCS; principal; 2017-07-17 15:30)
PROC: 00B00ZX Excision of Brain, Open Approach, Diagnostic (ICD-10-PCS; principal; 2017-07-17 15:30)
DX: C71.0 Malignant neoplasm of cerebrum, except lobes and ventricles (principal); Z85.46 Personal history of malignant neoplasm of prostate
CPT/HCPCS: 92523-GN; 97161-GP; 97166-GO; A9585; C1713; G0480; G8978-GP-CI; G8979-GP-CI; G8980-GP-CI; G8987-GO-CI; G8988-GO-CI; G8989-GO-CI; G9159-GN-CI; G9160-GN-CI; G9161-GN-CI; J0690; J1100; J1953; J2370; J2405; J2704; J3010